=== PATIENT | male | born 1980 | race Caucasian/White ===

== ENCOUNTER 2016-04-19 16:16 | Emergency (ER) | payer OTHER ==
[2016-04-19 16:24] VITALS: BP 142/76; PULSE 80; TEMP 97.8; BMI 45.6
--- NOTE | 2016-04-19 16:55 | PDOC ---
History of Present Illness - General Chief Complaint: RX Refill Stated Complaint: HIGH BLOOD PRESSURE Time Seen by Provider: 04/19/16 16:32 History Source: Patient Exam Limitations: No Limitations - History of Present Illness Initial Comments: 04/19/16 16:50 Patient here with complaints of mild headache pain this morning, checked his blood pressure at home and found it to be high reading 155/115. Continue to be concerned as patient has stopped taking his blood pressure medications, Vasotec 10 mg daily 2 weeks ago as he was feeling better and he ran out. Did not call his physician for evaluation. Denies visual changes, denies numbness or tingling , chest pain or palpitations, shortness of breath. No other neurologic changes. Timing/Duration: unsure, other Associated Symptoms: reports: denies symptoms. denies: cough, fever/chills, malaise Past History - Travel Traveled outside of the country in the last 30 days: No Close contact w/someone who was outside of country & ill: No - Past Medical History Allergies/Adverse Reactions: Allergies Allergy/AdvReac Type Severity Reaction Status Date / Time No Known Allergies Allergy Verified 04/19/16 16:22 Home Medications: Ambulatory Orders Enalapril Maleate [Vasotec] 10 mg PO DAILY #5 tablet 04/19/16 HTN: Yes - Psycho/Social/Smoking Cessation Hx Suicidal Ideation: No Smoking History: Never smoked Review of Systems - Review of Systems Able to Perform ROS?: Yes Is the patient limited Macedonian proficient: Yes Constitutional: Yes: Symptoms Reported, See HPI, Malaise HEENTM: No: Symptoms Reported Respiratory: Yes: See HPI, Cough All Other Systems: Reviewed and Negative *Physical Exam - Vital Signs Last Vital Signs Temp Pulse Resp BP Pulse Ox 97.8 F 80 18 142/76 100 04/19/16 16:22 04/19/16 16:22 04/19/16 16:22 04/19/16 16:22 04/19/16 16:22 - Physical Exam General Appearance: Yes: Appropriately Dressed, Apparent Distress HEENT: positive: CARLOS ALBERTO, Normal ENT Inspection, TMs Normal, Pharynx Normal Neck: positive: Supple Respiratory/Chest: positive: Normal Breath Sounds Gastrointestinal/Abdominal: positive: Soft Extremity: positive: Normal Capillary Refill Integumentary: positive: Normal Color, Pale Neurologic: positive: operator vacuum II-XII NML intact, Fully Oriented, Alert, Normal Mood/ Affect, Normal Response, Motor Strength 07/02 *DC/Admit/Observation/Transfer Diagnosis at time of Disposition: Hypertension - Discharge Dispostion Disposition: HOME Condition at time of disposition: Stable Admit: No - Prescriptions Prescriptions: Enalapril Maleate [Vasotec] 10 mg PO DAILY #5 tablet - Patient Instructions Printed Discharge Instructions: High Blood Pressure Additional Instructions: Rest, avoid strenuous activity until symptoms resolve Call and see private physician this week for reevaluation, and for appropriate medications - Post Discharge Activity Work/School Note: Back to Work
== END 2016-04-19 17:01 | disposition home or self-care (01) ==
LOC: JERFT 16:16
DX: I10 Essential (primary) hypertension (principal); Z91.14 Patient's other noncompliance with medication regimen
CPT/HCPCS: 99281-25

== ENCOUNTER 2016-06-05 16:38 | Emergency (ER) | payer OTHER ==
[2016-06-05 17:08] VITALS: BP 135/81; PULSE 98; TEMP 98; BMI 40.1
--- NOTE | 2016-06-05 17:50 | PDOC ---
History of Present Illness - General Chief Complaint: Toothache Stated Complaint: TOOTHACHE Time Seen by Provider: 06/05/16 17:14 History Source: Patient Exam Limitations: No Limitations - History of Present Illness Initial Comments: 06/05/16 17:50 35-year-old male with tooth decay over 1 year and now with dental pain x 4 days unrelieved with naprosyn. Pt denies fever, patient swelling, history of diabetes or immunosuppression. Patient states is an appointment next week with the dentist came to the ER to receive something stronger. Timing/Duration: other Severity: moderate Associated Symptoms: reports: denies symptoms Past History - Past Medical History Allergies/Adverse Reactions: Allergies Allergy/AdvReac Type Severity Reaction Status Date / Time No Known Allergies Allergy Verified 06/05/16 17:04 Home Medications: Ambulatory Orders Enalapril Maleate [Vasotec] 10 mg PO DAILY #5 tablet 04/19/16 Oxycodone HCl/Acetaminophen [Percocet 5-325 mg Tablet] 1 - 2 tab PO Q6H PRN #12 tab MDD 4 06/05/16 HTN: Yes - Immunization History Immunization Up to Date: Yes - Psycho/Social/Smoking Cessation Hx Suicidal Ideation: No Smoking History: Never smoked Hx Alcohol Use: No Drug/Substance Use Hx: No Patient Lives Alone: No Lives with/in: spouse/SO Review of Systems - Review of Systems Able to Perform ROS?: Yes Constitutional: No: Symptoms Reported HEENTM: Yes: Dental Problems Respiratory: No: Symptoms reported Cardiac (ROS): No: Symptoms Reported ABD/GI: No: Nausea Integumentary: No: Lumps Neurological: No: Headache, Dizziness *Physical Exam - Vital Signs Last Vital Signs Temp Pulse Resp BP Pulse Ox 98.0 F 98 H 18 135/81 100 06/05/16 17:04 06/05/16 17:04 06/05/16 17:04 06/05/16 17:04 06/05/16 17:04 - Physical Exam General Appearance: Yes: Nourished, Appropriately Dressed. No: Apparent Distress HEENT: positive: EOMI, CARLOS ALBERTO, Other (#30 decayed down gumline with no signs of abscess) Neck: negative: Lymphadenopathy (R), Lymphadenopathy (L) Integumentary: positive: Normal Color, Warm, Moist Neurologic: positive: Normal Mood/Affect, Motor Strength 5/5 (ambulatory) Medical Decision Making - Medical Decision Making 06/05/16 17:56 Patient here with decay to his right lower quadrant. #30 is decayed without signs of abscess. Patient requesting something stronger the Naprosyn. Patient will be sent home with Percocet since he has an appointment next week and has no signs of infection presently. *DC/Admit/Observation/Transfer Diagnosis at time of Disposition: Tooth decay - Discharge Dispostion Disposition: HOME Condition at time of disposition: Good - Prescriptions Prescriptions: Oxycodone HCl/Acetaminophen [Percocet 5-325 mg Tablet] 1 - 2 tab PO Q6H PRN #12 tab MDD 4 PRN Reason: Pain - Referrals Referrals: Adam Garnett MD [Primary Care Provider] - - Patient Instructions Printed Discharge Instructions: DI for Tooth Decay Additional Instructions: Please rinse mouth frequently and take Percocet for severe pain. Please follow up with the dentist as scheduled next week
== END 2016-06-05 17:51 | disposition home or self-care (01) ==
LOC: JERFT 16:38 → JER 16:38 → JERFT 17:51
DX: K08.89 Other specified disorders of teeth and supporting structures (principal); I10 Essential (primary) hypertension
CPT/HCPCS: 99281-25

== ENCOUNTER 2016-06-11 07:02 | Emergency (ER) | payer OTHER ==
[2016-06-11 07:11] VITALS: TEMP 98; BMI 40.1
--- NOTE | 2016-06-11 07:26 | PDOC ---
Attending Attestation - Resident Resident Name: Koby Balderas - ED Attending Attestation I have performed the following: I have examined & evaluated the patient, The case was reviewed & discussed with the resident, I agree w/resident's findings & plan, Exceptions are as noted - HPI HPI: 35 yo M no PMH presents with cough, congestion, sore throat for past 3 days. He states that the cough has been worsening for the past day. He states that his gave him his child's prednisone oral solution to help with his symptoms, which it did not. He c/o subjective fever, nasal congestion. No sick contacts. - Physicial Exam PE: GENERAL: Awake, alert, and fully oriented, in no acute distress HEAD: No signs of trauma EYES: PERRLA, EOMI, sclera anicteric, conjunctiva clear ENT: Auricles normal inspection, hearing grossly normal, nares patent, oropharynx erythematous without exudates. Moist mucosa NECK: Normal ROM, supple, +anterior cervical lymphadenopathy, JVD, or masses. LUNGS: Breath sounds equal, clear to auscultation bilaterally. No wheezes, and no crackles. Intermittent dry cough. HEART: Regular rate and rhythm, normal S1 and S2, no murmurs, rubs or gallops ABDOMEN: Soft, nontender, normoactive bowel sounds. No guarding, no rebound. No masses EXTREMITIES: Normal range of motion, no edema. No clubbing or cyanosis. No cords, erythema, or tenderness NEUROLOGICAL: Cranial nerves II through XII grossly intact. Normal speech, normal gait. SKIN: Warm, Dry, normal turgor, no rashes or lesions noted. - Medical Decision Making 35 yo M with upper respiratory infection, suspect viral etiology. Will obtain flu swab and CXR. DC with carlos AC for cough.
--- NOTE | 2016-06-11 07:39 | PDOC ---
History of Present Illness - General Chief Complaint: Cold Symptoms Stated Complaint: COUGHING Time Seen by Provider: 06/11/16 07:20 History Source: Patient Exam Limitations: Language Barrier - History of Present Illness Initial Comments: 06/11/16 07:28 35 yo M with PMhx of HTN presents with three day history of soar throat and cough. Cough is productive of greenish sputum. Throat soreness has worsened. Minimally alleviated by OTC cold remedies and no aggravating factors.Subjective fevers. HE took some of his some prednisone today. Denies CP, BEAVER, SOB, palpitations, N/V. Timing/Duration: reports: changing over time Past History - Travel Traveled outside of the country in the last 30 days: No Close contact w/someone who was outside of country & ill: No - Past Medical History Allergies/Adverse Reactions: Allergies Allergy/AdvReac Type Severity Reaction Status Date / Time No Known Allergies Allergy Verified 06/11/16 07:06 Home Medications: Ambulatory Orders Enalapril Maleate [Vasotec] 10 mg PO DAILY #5 tablet 04/19/16 Guaifenesin AC [Robitussin AC] 10 ml PO HS #1 ud MDD 1 06/11/16 HTN: Yes - Immunization History Immunization Up to Date: Yes - Psycho/Social/Smoking Cessation Hx Suicidal Ideation: No Smoking History: Never smoked Have you smoked in the past 12 months: No Information on smoking cessation initiated: No Hx Alcohol Use: No Drug/Substance Use Hx: No Respiratory Specific PMHX - Complaint Specific PMHX Bronchitis: No Pneumonia: No Review of Systems - Review of Systems Able to Perform ROS?: Yes Is the patient limited Yoruba proficient: Yes Constitutional: Yes: Malaise HEENTM: Yes: Throat Pain, Throat Swelling, Difficulty Swallowing Respiratory: Yes: Cough, Productive cough ABD/GI: Yes: Difficulty Swallowing All Other Systems: Reviewed and Negative *Physical Exam - Vital Signs Last Vital Signs Temp Pulse Resp BP Pulse Ox 98.0 F 91 H 20 122/72 97 06/11/16 07:07 06/11/16 07:07 06/11/16 07:07 06/11/16 07:07 06/11/16 07:07 - Physical Exam General Appearance: Yes: Obese HEENT: positive: EOMI, CARLOS ALBERTO Neck: positive: Tender, Supple, Tender lateral Respiratory/Chest: positive: Lungs Clear, Normal Breath Sounds. negative: Respiratory Distress, Accessory Muscle Use Cardiovascular: positive: Regular Rhythm, Regular Rate, S1, S2. negative: Edema , JVD, Murmur Gastrointestinal/Abdominal: positive: Normal Bowel Sounds, Flat, Soft. negative : Tender, Organomegaly, Pulsatile Mass Musculoskeletal: positive: CVA Tenderness Extremity: positive: Normal Inspection Integumentary: positive: Normal Color, Dry, Warm Neurologic: positive: Fully Oriented, Alert, Normal Mood/Affect Medical Decision Making - Medical Decision Making 06/11/16 07:45 35 yo M with PMhx of HTN presents with three day history of soar throat and cough. -FLu swab -CXR to r/o PNA 06/11/16 09:16 CXR- no acute pathology FLu Swab- Negative Most likely viral pharyngitis. Will send script for Robitussin AC. *DC/Admit/Observation/Transfer Diagnosis at time of Disposition: Viral pharyngitis - Discharge Dispostion Admit: No - Prescriptions Prescriptions: Guaifenesin AC [Robitussin AC] 10 ml PO HS #1 ud MDD 1 - Referrals Referrals: Tino Carr MD [Primary Care Provider] - - Patient Instructions Printed Discharge Instructions: DI for Viral Upper Respiratory Infection -- Adult, DI for Viral Pharyngitis Additional Instructions: Take medication as directed at night. Avoid physical activity once medication has been taken. Increase activity as tolerated. Normal diet. If symptoms worsen return to ED. Print Language: ISRAELI - Post Discharge Activity Work/School Note: Back to Work
[2016-06-11 10:37] VITALS: BP 130/78; PULSE 78
== END 2016-06-11 10:38 | disposition home or self-care (01) ==
LOC: JER 07:02
DX: J06.9 Acute upper respiratory infection, unspecified (principal); J02.9 Acute pharyngitis, unspecified; B97.89 Other viral agents as the cause of diseases classified elsewhere
CPT/HCPCS: 71010-TC; 87804; 99282-25

== ENCOUNTER 2016-09-12 10:45 | Emergency (ER) | payer OTHER ==
[2016-09-12 10:50] VITALS: BP 113/90; PULSE 101; TEMP 98; BMI 43.0
--- NOTE | 2016-09-12 11:09 | PDOC ---
History of Present Illness - General Chief Complaint: RX Refill Stated Complaint: HIGH BP Time Seen by Provider: 09/12/16 11:02 History Source: Patient Exam Limitations: No Limitations - History of Present Illness Initial Comments: 09/12/16 11:05 35 YR MALE STATES HE RAN OUT OF HIS ENALPRIL 10MG YESTERDAY. PT UNABLE TO SEE HIS DOCTOR UNTIL NEXT WEEK. PT HAS NO HEADACHE NO CHEST PAIN NO COMPLAINTS. Timing/Duration: 24 hours Severity: mild Past History - Past Medical History Allergies/Adverse Reactions: Allergies Allergy/AdvReac Type Severity Reaction Status Date / Time No Known Allergies Allergy Verified 09/12/16 10:50 Home Medications: Ambulatory Orders Enalapril Maleate [Vasotec] 10 mg PO DAILY 09/12/16 Enalapril Maleate [Vasotec] 10 mg PO DAILY #21 tablet 09/12/16 HTN: Yes Other medical history: obese - Immunization History Immunization Up to Date: Yes - Psycho/Social/Smoking Cessation Hx Anxiety: No Suicidal Ideation: No Smoking History: Never smoked Have you smoked in the past 12 months: No Hx Alcohol Use: Yes (SOCIAL) Drug/Substance Use Hx: No Substance Use Type: None Review of Systems - Review of Systems Able to Perform ROS?: Yes Is the patient limited Colombian proficient: No Constitutional: No: Symptoms Reported HEENTM: No: Symptoms Reported Respiratory: No: Symptoms reported Cardiac (ROS): No: Symptoms Reported ABD/GI: No: Symptoms Reported : No: Symptoms Reported Musculoskeletal: No: Symptoms Reported Integumentary: No: Symptoms Reported Neurological: No: Symptoms reported *Physical Exam - Vital Signs Last Vital Signs Temp Pulse Resp BP Pulse Ox 98.0 F 101 H 20 113/90 97 09/12/16 10:47 09/12/16 10:47 09/12/16 10:47 09/12/16 10:47 09/12/16 10:47 - Physical Exam General Appearance: Yes: Nourished, Appropriately Dressed, Obese HEENT: positive: EOMI, CARLOS ALBERTO, Normal ENT Inspection Respiratory/Chest: positive: Lungs Clear, Normal Breath Sounds Cardiovascular: positive: Regular Rhythm, Regular Rate *DC/Admit/Observation/Transfer Diagnosis at time of Disposition: Encounter for medication refill - Discharge Dispostion Disposition: HOME Condition at time of disposition: Good - Prescriptions Prescriptions: Enalapril Maleate [Vasotec] 10 mg PO DAILY #21 tablet - Patient Instructions Additional Instructions: please call your doctor tomorrow to set up appointment for follow up you are being given a 21 day supply of your blood pressure medication
== END 2016-09-12 11:20 | disposition home or self-care (01) ==
LOC: JERFT 10:45 → JER 10:45 → JERFT 11:20
DX: Z76.0 Encounter for issue of repeat prescription (principal)
CPT/HCPCS: 99281-25